=== PATIENT | male | born 1960 | race Caucasian/White ===

== ENCOUNTER 2018-03-19 15:22 | Emergency (ER) | payer OTHER, MEDICAID, SELFPAY ==
[2018-03-19 15:26] VITALS: BP 156/92; PULSE 115; RESP 22; TEMP 36.9; O2SAT 96; BMI 24.3
--- NOTE | 2018-03-19 15:33 | DI.RAD.S_ITS ---
PROCEDURE: XR CHEST 2V INDICATIONS: coughed real hard, heard/felt pop in left ribs. TECHNIQUE: 2 views of the chest were acquired. COMPARISON: None. FINDINGS: Surgical changes and devices: None. Lungs and pleura: No pleural effusions or pneumothorax. Lungs are clear. Mediastinum: Mediastinal contours are normal. Heart size is normal. Bones and chest wall: No suspicious bony abnormalities. Soft tissues appear unremarkable. IMPRESSION: No trauma found. No pneumonia seen. Dictated by: Rigoberto Serrano M.D. on 03/19/2018 at 15:46 Approved by: Rigoberto Serrano M.D. on 03/19/2018 at 15:46
--- NOTE | 2018-03-19 17:12 | ED.URI ---
HPI - URI/Sore Throat <JUANI Mirza - Last Filed: 03/19/18 23:06> General Chief Complaint: Upper Respiratory Symptoms Stated Complaint: hard to breathe, hacking stuff up Time Seen by Provider: 03/19/18 17:12 Source: patient Mode of arrival: ambulatory Limitations: no limitations History of Present Illness HPI Narrative: 57-year-old healthy male that is a former smoker here for complaint of having cough over the past few days that has been productive. He denies any fevers. He also reports having left flank pain that radiates to his left abdomen over the past few days as well. He denies any urinary symptoms. Positive p.o. intake. No nausea vomiting. he denies any trauma to the area. No hematuria. Last bowel movement was yesterday and was unremarkable. He denies any other concerns or complaints. MD Complaint: cough Related Data Previous Rx's Medication Instructions Recorded hydrocodone-acetaminophen 1 tab PO Q4-6H PRN #15 tab 03/19/18 ondansetron 4 mg PO Q6-8H PRN #10 tab 03/19/18 tamsulosin 0.4 mg PO DAILY #30 cap 03/19/18 Allergies Allergy/AdvReac Type Severity Reaction Status Date / Time No Known Drug Allergies Allergy Verified 03/19/18 15:31 Review of Systems <JUANI Mirza - Last Filed: 03/19/18 23:06> Constitutional Denies chills, Denies fever(s), Denies lethargy and Denies weakness Eyes Denies change in vision, Denies eye discharge, Denies irritation and Denies loss of vision ENT Ears, Nose, Mouth, and Throat: Denies change in voice, Denies neck pain, Denies sore throat and Denies throat swelling Cardiovascular Denies chest pain, Denies irregular heart rhythm, Denies lightheadedness, Denies palpitations and Denies orthopnea Respiratory Denies wheezing Comments: Cough Gastrointestinal Gastrointestinal: Reports abdominal pain, Denies change in bowel habits, Denies diarrhea, Denies nausea and Denies vomiting Genitourinary Reports flank pain Musculoskeletal Denies neck pain Integumentary/Breasts Denies pruritus, Denies erythema, Denies rash and Denies wounds Neurologic Denies confusion, Denies loss of vision and Denies weakness Psychiatric Denies anxiety, Denies confusion, Denies depression, Denies homicidal ideation and Denies suicidal ideation Endocrine Denies palpitations Hematologic/Lymphatic Denies easy bruising Allergic/Immunologic Denies urticaria, Denies throat swelling and Denies wheezing Exam <JUANI Mirza - Last Filed: 03/19/18 23:06> Initial Vital Signs Initial Vital Signs: Vital Signs Temperature 98.4 F 03/19/18 15:26 Pulse Rate 115 H 03/19/18 15:26 Respiratory Rate 22 03/19/18 15:26 Blood Pressure 156/92 H 03/19/18 15:26 Pulse Oximetry 96 03/19/18 15:26 Const General: cooperative and well developed Nutritional Appearance: well nourished Orientation: alert, awake, oriented x3 and not confused HENMT Mouth: oral mucosae normal and moist mucous membranes Eyes Conjunctivae: conjunctivae normal Sclera: sclerae normal Pupils: PERRL EOM: EOM intact bilaterally Resp Effort & Inspection: normal respiratory effort, able to speak in complete sentences, no respiratory distress and no use of accessory muscles Auscultation: clear to auscultation bilaterally, no rales, no rhonchi and no wheezes Cardio Rate: regular rate Rhythm: regular rhythm Heart Sounds: no click, no gallops, no murmurs and no rubs Pulses: normal peripheral pulses GI Inspection: non-distended Palpation: soft, no hepatosplenomegaly, No guarding, No pulsatile mass and tender Auscultation: normal bowel sounds General: CVA tenderness ( left ) Skin General: no rashes or lesions noted, No jaundice and No petechiae Neuro General: alert, oriented x3, gait normal and no focal motor deficits Speech: speech normal <Elissa Jovel DO - Last Filed: 03/21/18 03:54> Initial Vital Signs Initial Vital Signs: Vital Signs Temperature 98.4 F 03/19/18 15:26 Pulse Rate 115 H 03/19/18 15:26 Respiratory Rate 22 03/19/18 15:26 Blood Pressure 156/92 H 03/19/18 15:26 Pulse Oximetry 96 03/19/18 15:26 Course <JUANI Mirza - Last Filed: 03/19/18 23:06> Orders Ordered: Discontinued Medications Hydrocodone Bitart/Acetaminophen (Vicodin Prepack) 1 bottle MISC SEEINSTR ONE Stop: 03/19/18 22:39 Last Admin: 03/19/18 23:11 Dose: 1 bottle Sodium Chloride (Normal Saline 0.9%) 1,000 mls @ 1,000 mls/hr IV BOLUS ONE Stop: 03/19/18 18:18 Last Infusion: 03/19/18 19:50 Dose: 0 mls/hr Admin: 03/19/18 18:12 Dose: 1,000 mls/hr Tamsulosin HCl (Flomax) 0.4 mg PO NOW ONE Stop: 03/19/18 22:39 Last Admin: 03/19/18 23:11 Dose: 0.4 mg Vital Signs - 8 hr 03/19/18 15:26 03/19/18 18:35 03/19/18 21:48 Temperature 98.4 F Pulse Rate 115 H 98 H 102 H Respiratory Rate 22 20 12 Blood Pressure 156/92 H Blood Pressure [Left Arm] 151/91 H 142/88 H Pulse Oximetry 96 99 102 H 03/19/18 23:04 Temperature Pulse Rate 101 H Respiratory Rate Blood Pressure Blood Pressure [Left Arm] 140/87 Pulse Oximetry 92 <Elissa Jovel, - Last Filed: 03/21/18 03:54> Orders Ordered: Discontinued Medications Hydrocodone Bitart/Acetaminophen (Vicodin Prepack) 1 bottle [facility] SEEINSTR ONE Stop: 03/19/18 22:39 Last Admin: 03/19/18 23:11 Dose: 1 bottle Sodium Chloride (Normal Saline 0.9%) 1,000 mls @ 1,000 mls/hr IV BOLUS ONE Stop: 03/19/18 18:18 Last Infusion: 03/19/18 19:50 Dose: 0 mls/hr Admin: 03/19/18 18:12 Dose: 1,000 mls/hr Tamsulosin HCl (Flomax) 0.4 mg PO NOW ONE Stop: 03/19/18 22:39 Last Admin: 03/19/18 23:11 Dose: 0.4 mg Vital Signs - 8 hr 03/19/18 15:26 03/19/18 18:35 03/19/18 21:48 Temperature 98.4 F Pulse Rate 115 H 98 H 102 H Respiratory Rate 22 20 12 Blood Pressure 156/92 H Blood Pressure [Left Arm] 151/91 H 142/88 H Pulse Oximetry 96 99 102 H 03/19/18 23:04 Temperature Pulse Rate 101 H Respiratory Rate Blood Pressure Blood Pressure [Left Arm] 140/87 Pulse Oximetry 92 MDM - URI/Sore Throat <JUANI Mriza - Last Filed: 03/19/18 23:06> Lab Data Result diagrams: 03/19/18 18:03 03/19/18 18:03 Lab Results 03/19/18 03/19/18 03/19/18 Range/Units 18:03 18:03 18:03 WBC 11.0 (4.5-11.0) X10^3/uL RBC 5.31 (4.5-5.9) X10^6/uL Hgb 15.7 (13.5-17.5) g/dL Hct 47.2 (41-53) % MCV 88.7 (80-100) fL MCH 29.6 (26-34) PG MCHC 33.3 (30-36) % RDW 14.0 (11.6-14.8) % Plt Count 248 (150-400) X10^3/uL Neut % (Auto) 84.0 H (50-75) % Lymph % (Auto) 6.4 L (25-40) % Maverick % (Auto) 9.4 (3-14) % Eos % (Auto) 0.0 L (2-4) % Baso % (Auto) 0.2 (0-2) % Neut # (Auto) 9200 H (9357-0099) /uL Sodium 142 (137-145) mmol/L Potassium 4.0 (3.4-5.1) mmol/L Chloride 98 (98-107) mmol/L Carbon Dioxide 31 (22-32) mmol/L BUN 22 H (9-20) mg/dL Creatinine 1.40 H (0.66-1.25) mg/dL Estimated GFR 52.1 L (>60) mL/min BUN/Creatinine Ratio 15.7 (6-22) Glucose 118 H (70-100) mg/dL Calcium 9.6 (8.4-10.2) mg/dL Total Bilirubin 1.1 (0.2-1.3) mg/dL AST 22 (17-59) IU/L ALT 21 (21-72) IU/L Alkaline Phosphatase 95 (38-126) U/L Total Protein 8.1 (6.3-8.2) g/dL Albumin 4.5 (3.5-5.0) g/dL Globulin 3.6 (1.7-4.1) g/dL Albumin/Globulin Ratio 1.3 (1.0-2.8) Lipase 25 (23-300) U/L Urine RBC 1-5/hpf (0-5/HPF) Urine WBC 5-10/hpf H (0-5/HPF) Urine Bacteria None seen (None) Urine Mucus 2+ H (Negative) Ur Culture Indicated? Specimen cultured Micro UA Comment Not Reportable Urine Dip Bedside Urine Glucose Negative Bedside Urine Bilirubin - Negative Bedside Urine Ketone + 15 Urine Specific [place] 1.030 Bedside Urine Occult Blood +/- Bedside Urine pH 6.0 Bedside Urine Protein +/- 15 Bedside Urine Urobilinogen - Negative Bedside Urine Nitrite - Negative Bedside Urine Leukocytes - Negative Esterase Imaging Data Chest x-ray: Radiologist's impression: [address] [address] XRay Report Signed Patient: Jose Miguel Xavier#: [id number] : 1960Acct:[id number] Age/Sex: 57 / MDate of Service: 03/19/18 Loc: ED Accession Number: [id number] Procedure: XR chest 2V Ordering Provider: Gonzalo Johnson D.O. PROCEDURE: XR CHEST 2V INDICATIONS: coughed real hard, heard/felt pop in left ribs. TECHNIQUE: 2 views of the chest were acquired. COMPARISON: None. FINDINGS: Surgical changes and devices: None. Lungs and pleura: No pleural effusions or pneumothorax. Lungs are clear. Mediastinum: Mediastinal contours are normal. Heart size is normal. Bones and chest wall: No suspicious bony abnormalities. Soft tissues appear unremarkable. IMPRESSION: No trauma found. No pneumonia seen. Dictated by: Rigoberto Serrano M.D. on 03/19/2018 at 15:46 Approved by: Rigoberto Serrano M.D. on 03/19/2018 at 15:46 CT scan - abdomen: Radiologist's impression: [address] [address] [address] Scan Report Signed Patient: Jose Miguel Xavier#: [id number] : 1960Acct:[id number] Age/Sex: 57 / MDate of Service: 03/19/18 Loc: ED Accession Number: [id number] Procedure: CT abdomen pelvis w con Ordering Provider: Jaylan Ernandez PROCEDURE: CT ABDOMEN PELVIS W CON INDICATIONS: pain into the left flank and left abdominal area TECHNIQUE: After the administration of intravenous contrast, 5 mm thick sections acquired from the diaphragm to the symphysis. 5 mm coronal and sagittal reformats were acquired. For radiation dose reduction, the following was used: automated exposure control, adjustment of mA and/or kV according to patient size. COMPARISON: None. FINDINGS: Image quality: Excellent. ABDOMEN: Lung bases: There is mild atelectasis in the lung bases. Heart size is normal. A small hiatal hernia is present. Solid organs: No focal hepatic lesions identified. Gallbladder appears within normal limits without calcified gallstones.. Biliary system is non dilated. Pancreas enhances normally. Spleen is normal in size and enhancement. No adrenal nodules. There is an obstructing distal left ureteral stone measuring up to 4 mm with associated mild left hydroureteronephrosis. There is extensive left perinephric fluid tracking along the proximal ureter suggestive of forniceal rupture. There is mild asymmetrically decreased enhancement of the left kidney but no patchy areas of enhancement or other evidence of a striated nephrogram to definitely suggest pyelonephritis. Nonspecific left urothelial enhancement and thickening are noted. There is no right hydronephrosis. No additional renal stones identified. Peritoneum and bowel: Bowel loops demonstrate normal wall thickness and caliber. Colonic diverticulosis is demonstrated without acute diverticulitis. No free fluid or air. Nodes and vessels: No retroperitoneal or mesenteric adenopathy by size criteria. Aorta and inferior vena cava are normal in size. Miscellaneous: No ventral hernias. PELVIS: Genitourinary: Bladder wall thickness is normal. Miscellaneous: No inguinal hernias or adenopathy. Bones: No suspicious bony lesions. No vertebral body compression fractures. IMPRESSION: 1. Obstructing 4 mm distal left ureteral stone with mild left hydronephrosis. Extensive perinephric fluid is demonstrated suggestive of forniceal rupture. 2. Mild left urothelial thickening and enhancement are nonspecific but correlation is recommended with urinalysis to exclude a urinary tract infection. Findings discussed with JUANI Mirza on 03/19/18 at 7:40 PM. Dictated by: Denis Crisostomo M.D. on 03/19/2018 at 19:34 Approved by: Denis Crisostomo M.D. on 03/19/2018 at 19:43 [place] Narrative Medical decision making narrative: CT scan of the abdomen shows a 4 mm stone into the distal left ureter. CT scan also shows that evidence of a left forniceal rupure. mild hydroureter is also seen. Discussed case with [facility] urology who recommends follow-up with Urology on pain control and tamsulosin. if any worsening symptoms return to the emergency room. He is prescribed [place] for pain. Zofran for any nausea. And 30 days of tamsulosin. patient is to call the kidney stone center at [facility] tomorrow morning to schedule follow-up appointment. Follow up in the next few days with them. For any worsening symptoms return to the emergency room. <Elissa Jovel, - Last Filed: 03/21/18 03:54> Lab Data Lab Results 03/19/18 03/19/18 03/19/18 Range/Units 18:03 18:03 18:03 WBC 11.0 (4.5-11.0) X10^3/uL RBC 5.31 (4.5-5.9) X10^6/uL Hgb 15.7 (13.5-17.5) g/dL Hct 47.2 (41-53) % MCV 88.7 (80-100) fL MCH 29.6 (26-34) PG MCHC 33.3 (30-36) % RDW 14.0 (11.6-14.8) % Plt Count 248 (150-400) X10^3/uL Neut % (Auto) 84.0 H (50-75) % Lymph % (Auto) 6.4 L (25-40) % Maverick % (Auto) 9.4 (3-14) % Eos % (Auto) 0.0 L (2-4) % Baso % (Auto) 0.2 (0-2) % Neut # (Auto) 9200 H (5318-6390) /uL Sodium 142 (137-145) mmol/L Potassium 4.0 (3.4-5.1) mmol/L Chloride 98 (98-107) mmol/L Carbon Dioxide 31 (22-32) mmol/L BUN 22 H (9-20) mg/dL Creatinine 1.40 H (0.66-1.25) mg/dL Estimated GFR 52.1 L (>60) mL/min BUN/Creatinine Ratio 15.7 (6-22) Glucose 118 H (70-100) mg/dL Calcium 9.6 (8.4-10.2) mg/dL Total Bilirubin 1.1 (0.2-1.3) mg/dL AST 22 (17-59) IU/L ALT 21 (21-72) IU/L Alkaline Phosphatase 95 (38-126) U/L Total Protein 8.1 (6.3-8.2) g/dL Albumin 4.5 (3.5-5.0) g/dL Globulin 3.6 (1.7-4.1) g/dL Albumin/Globulin Ratio 1.3 (1.0-2.8) Lipase 25 (23-300) U/L Urine RBC 1-5/hpf (0-5/HPF) Urine WBC 5-10/hpf H (0-5/HPF) Urine Bacteria None seen (None) Urine Mucus 2+ H (Negative) Ur Culture Indicated? Specimen cultured Micro UA Comment Not Reportable Urine Dip Bedside Urine Glucose Negative Bedside Urine Bilirubin - Negative Bedside Urine Ketone + 15 Urine Specific [place] 1.030 Bedside Urine Occult Blood +/- Bedside Urine pH 6.0 Bedside Urine Protein +/- 15 Bedside Urine Urobilinogen - Negative Bedside Urine Nitrite - Negative Bedside Urine Leukocytes - Negative Esterase Discharge Plan Departure Patient Disposition: Home Clinical Impression: Nephrolithiasis Discharge Date/Time: 03/19/18 23:22 Interventions: ED Discharge Assessment Last Done: 03/19/18 23:22 Instructions: DI for Kidney Stones Activity Restrictions/Additional Instructions: CT of the abdomen shows left sided kidney stone. Kidney stone is a 4 mm in size. Follow up at [facility] kidney stone center for further evaluation. Call their number at [phone] and follow up with them in the next few days. Plenty of fluids. Tylenol needed for any discomfort. [place] is prescribed for breakthrough pain use as directed. Flomax as prescribed to help you passed stone also use as directed. Small amount of Zofran as prescribed for nausea also use as directed. For any worsening symptoms or unable to keep fluids down return to the emergency room. Follow up with primary care provider. Prescriptions: New hydrocodone-acetaminophen 5-325 mg tablet 1 tab PO Q4-6H PRN (Reason: pain) Qty: 15 RF: 0 tamsulosin 0.4 mg capsule 0.4 mg PO DAILY Qty: 30 RF: 0 ondansetron 4 mg tablet,disintegrating 4 mg PO Q6-8H PRN (Reason: nausea and vomiting) Qty: 10 RF: 0 Referrals: [facility] [Provider Group] <Elissa Jovel, - Last Filed: 03/21/18 03:54> [facility] ED Attending Robert Attestation: I was immediately available in the department for consultation. Documentation has been reviewed. I agree with assessment and plan.
--- NOTE | 2018-03-19 17:20 | DI.CT.S_ITS ---
PROCEDURE: CT ABDOMEN PELVIS W CON INDICATIONS: pain into the left flank and left abdominal area TECHNIQUE: After the administration of intravenous contrast, 5 mm thick sections acquired from the diaphragm to the symphysis. 5 mm coronal and sagittal reformats were acquired. For radiation dose reduction, the following was used: automated exposure control, adjustment of mA and/or kV according to patient size. COMPARISON: None. FINDINGS: Image quality: Excellent. ABDOMEN: Lung bases: There is mild atelectasis in the lung bases. Heart size is normal. A small hiatal hernia is present. Solid organs: No focal hepatic lesions identified. Gallbladder appears within normal limits without calcified gallstones.. Biliary system is non dilated. Pancreas enhances normally. Spleen is normal in size and enhancement. No adrenal nodules. There is an obstructing distal left ureteral stone measuring up to 4 mm with associated mild left hydroureteronephrosis. There is extensive left perinephric fluid tracking along the proximal ureter suggestive of forniceal rupture. There is mild asymmetrically decreased enhancement of the left kidney but no patchy areas of enhancement or other evidence of a striated nephrogram to definitely suggest pyelonephritis. Nonspecific left urothelial enhancement and thickening are noted. There is no right hydronephrosis. No additional renal stones identified. Peritoneum and bowel: Bowel loops demonstrate normal wall thickness and caliber. Colonic diverticulosis is demonstrated without acute diverticulitis. No free fluid or air. Nodes and vessels: No retroperitoneal or mesenteric adenopathy by size criteria. Aorta and inferior vena cava are normal in size. Miscellaneous: No ventral hernias. PELVIS: Genitourinary: Bladder wall thickness is normal. Miscellaneous: No inguinal hernias or adenopathy. Bones: No suspicious bony lesions. No vertebral body compression fractures. IMPRESSION: 1. Obstructing 4 mm distal left ureteral stone with mild left hydronephrosis. Extensive perinephric fluid is demonstrated suggestive of forniceal rupture. 2. Mild left urothelial thickening and enhancement are nonspecific but correlation is recommended with urinalysis to exclude a urinary tract infection. Findings discussed with JUANI Mirza on 03/19/18 at 7:40 PM. Dictated by: Denis Crisostomo M.D. on 03/19/2018 at 19:34 Approved by: Denis Crisostomo M.D. on 03/19/2018 at 19:43
[2018-03-19] MEDS: SODIUM CHLORIDE 0.9% 1,000 ML 1000 ML IV (18:12)
[2018-03-19 18:14] LABS: Bacteria Urine None Seen
[2018-03-19 18:19] LABS: Add Manual Diff / Slide Review NO; Basophils Percent Auto 0.2 % (0-2); Hematocrit 47.2 % (41-53); Hemoglobin 15.7 g/dL (13.5-17.5); Lymphocytes Percent Auto 6.4 % (25-40); Mean Corpuscular HGB Conc 33.3 % (30-36); Mean Corpuscular Hemoglobin 29.6 PG (26-34); Mean Corpuscular Volume 88.7 fL (80-100); Monocytes Percent Auto 9.4 % (3-14); Neutrophils Absolute Auto 9200 /uL (3000-5900); Platelet Count 248 X10^3/uL (150-400); Red Blood Cell Count 5.31 X10^6/uL (4.5-5.9)
[2018-03-19 18:25] LABS: Culture Indicated Urine Specimen Cultured; Mucus Urine 2+ (Negative); RBC Urine 1-5/HPF (0-5/HPF); WBC Urine 5-10/HPF (0-5/HPF)
[2018-03-19 18:31] LABS: Alanine Aminotransferase 21 IU/L (21-72); Albumin 4.5 g/dL (3.5-5.0); Albumin Globulin Ratio 1.3 (1.0-2.8); Alkaline Phosphatase 95 U/L (38-126); Aspartate Aminotransferase 22 IU/L (17-59); BUN Creatinine Ratio 15.7 (6-22); Bilirubin Total 1.1 mg/dL (0.2-1.3); Blood Urea Nitrogen 22 mg/dL (9-20); Calcium 9.6 mg/dL (8.4-10.2); Carbon Dioxide 31 mmol/L (22-32); Chloride 98 mmol/L (98-107); Estimated Glomerular Filt Rate 52.1 mL/min (>60); Globulin 3.6 g/dL (1.7-4.1); Glucose 118 mg/dL (70-100); HEMOLYSIS < 15 (0-50); Lipase 25 U/L (23-300); Sodium 142 mmol/L (137-145); Total Protein 8.1 g/dL (6.3-8.2)
[2018-03-19 18:35] VITALS: BP 151/91; PULSE 98; RESP 20; O2SAT 99
[2018-03-19 21:48] VITALS: BP 142/88; PULSE 102; RESP 12; O2SAT 102
--- NOTE | 2018-03-19 21:58 | ED_ITS ---
HPI - URI/Sore Throat <JUANI Mirza - Last Filed: 03/19/18 23:06> General Chief Complaint: Upper Respiratory Symptoms Stated Complaint: hard to breathe, hacking stuff up Time Seen by Provider: 03/19/18 17:12 Source: patient Mode of arrival: ambulatory Limitations: no limitations History of Present Illness HPI Narrative: 57-year-old healthy male that is a former smoker here for complaint of having cough over the past few days that has been productive. He denies any fevers. He also reports having left flank pain that radiates to his left abdomen over the past few days as well. He denies any urinary symptoms. Positive p.o. intake. No nausea vomiting. he denies any trauma to the area. No hematuria. Last bowel movement was yesterday and was unremarkable. He denies any other concerns or complaints. MD Complaint: cough Related Data Previous Rx's Medication Instructions Recorded hydrocodone-acetaminophen 1 tab PO Q4-6H PRN #15 tab 03/19/18 ondansetron 4 mg PO Q6-8H PRN #10 tab 03/19/18 tamsulosin 0.4 mg PO DAILY #30 cap 03/19/18 Allergies Allergy/AdvReac Type Severity Reaction Status Date / Time No Known Drug Allergies Allergy Verified 03/19/18 15:31 Review of Systems <JUANI Mirza - Last Filed: 03/19/18 23:06> Constitutional Denies chills, Denies fever(s), Denies lethargy and Denies weakness Eyes Denies change in vision, Denies eye discharge, Denies irritation and Denies loss of vision ENT Ears, Nose, Mouth, and Throat: Denies change in voice, Denies neck pain, Denies sore throat and Denies throat swelling Cardiovascular Denies chest pain, Denies irregular heart rhythm, Denies lightheadedness, Denies palpitations and Denies orthopnea Respiratory Denies wheezing Comments: Cough Gastrointestinal Gastrointestinal: Reports abdominal pain, Denies change in bowel habits, Denies diarrhea, Denies nausea and Denies vomiting Genitourinary Reports flank pain Musculoskeletal Denies neck pain Integumentary/Breasts Denies pruritus, Denies erythema, Denies rash and Denies wounds Neurologic Denies confusion, Denies loss of vision and Denies weakness Psychiatric Denies anxiety, Denies confusion, Denies depression, Denies homicidal ideation and Denies suicidal ideation Endocrine Denies palpitations Hematologic/Lymphatic Denies easy bruising Allergic/Immunologic Denies urticaria, Denies throat swelling and Denies wheezing Exam <JUANI Mirza - Last Filed: 03/19/18 23:06> Initial Vital Signs Initial Vital Signs: Vital Signs Temperature 98.4 F 03/19/18 15:26 Pulse Rate 115 H 03/19/18 15:26 Respiratory Rate 22 03/19/18 15:26 Blood Pressure 156/92 H 03/19/18 15:26 Pulse Oximetry 96 03/19/18 15:26 Const General: cooperative and well developed Nutritional Appearance: well nourished Orientation: alert, awake, oriented x3 and not confused HENMT Mouth: oral mucosae normal and moist mucous membranes Eyes Conjunctivae: conjunctivae normal Sclera: sclerae normal Pupils: PERRL EOM: EOM intact bilaterally Resp Effort & Inspection: normal respiratory effort, able to speak in complete sentences, no respiratory distress and no use of accessory muscles Auscultation: clear to auscultation bilaterally, no rales, no rhonchi and no wheezes Cardio Rate: regular rate Rhythm: regular rhythm Heart Sounds: no click, no gallops, no murmurs and no rubs Pulses: normal peripheral pulses GI Inspection: non-distended Palpation: soft, no hepatosplenomegaly, No guarding, No pulsatile mass and tender Auscultation: normal bowel sounds General: CVA tenderness ( left ) Skin General: no rashes or lesions noted, No jaundice and No petechiae Neuro General: alert, oriented x3, gait normal and no focal motor deficits Speech: speech normal <Elissa Jovel DO - Last Filed: 03/21/18 03:54> Initial Vital Signs Initial Vital Signs: Vital Signs Temperature 98.4 F 03/19/18 15:26 Pulse Rate 115 H 03/19/18 15:26 Respiratory Rate 22 03/19/18 15:26 Blood Pressure 156/92 H 03/19/18 15:26 Pulse Oximetry 96 03/19/18 15:26 Course <JUANI Mirza - Last Filed: 03/19/18 23:06> Orders Ordered: Discontinued Medications Hydrocodone Bitart/Acetaminophen (Vicodin Prepack) 1 bottle MISC SEEINSTR ONE Stop: 03/19/18 22:39 Last Admin: 03/19/18 23:11 Dose: 1 bottle Sodium Chloride (Normal Saline 0.9%) 1,000 mls @ 1,000 mls/hr IV BOLUS ONE Stop: 03/19/18 18:18 Last Infusion: 03/19/18 19:50 Dose: 0 mls/hr Admin: 03/19/18 18:12 Dose: 1,000 mls/hr Tamsulosin HCl (Flomax) 0.4 mg PO NOW ONE Stop: 03/19/18 22:39 Last Admin: 03/19/18 23:11 Dose: 0.4 mg Vital Signs - 8 hr 03/19/18 15:26 03/19/18 18:35 03/19/18 21:48 Temperature 98.4 F Pulse Rate 115 H 98 H 102 H Respiratory Rate 22 20 12 Blood Pressure 156/92 H Blood Pressure [Left Arm] 151/91 H 142/88 H Pulse Oximetry 96 99 102 H 03/19/18 23:04 Temperature Pulse Rate 101 H Respiratory Rate Blood Pressure Blood Pressure [Left Arm] 140/87 Pulse Oximetry 92 <Elissa Jovel, - Last Filed: 03/21/18 03:54> Orders Ordered: Discontinued Medications Hydrocodone Bitart/Acetaminophen (Vicodin Prepack) 1 bottle [facility] SEEINSTR ONE Stop: 03/19/18 22:39 Last Admin: 03/19/18 23:11 Dose: 1 bottle Sodium Chloride (Normal Saline 0.9%) 1,000 mls @ 1,000 mls/hr IV BOLUS ONE Stop: 03/19/18 18:18 Last Infusion: 03/19/18 19:50 Dose: 0 mls/hr Admin: 03/19/18 18:12 Dose: 1,000 mls/hr Tamsulosin HCl (Flomax) 0.4 mg PO NOW ONE Stop: 03/19/18 22:39 Last Admin: 03/19/18 23:11 Dose: 0.4 mg Vital Signs - 8 hr 03/19/18 15:26 03/19/18 18:35 03/19/18 21:48 Temperature 98.4 F Pulse Rate 115 H 98 H 102 H Respiratory Rate 22 20 12 Blood Pressure 156/92 H Blood Pressure [Left Arm] 151/91 H 142/88 H Pulse Oximetry 96 99 102 H 03/19/18 23:04 Temperature Pulse Rate 101 H Respiratory Rate Blood Pressure Blood Pressure [Left Arm] 140/87 Pulse Oximetry 92 MDM - URI/Sore Throat <JUANI Mirza - Last Filed: 03/19/18 23:06> Lab Data Result diagrams: 03/19/18 18:03 03/19/18 18:03 Lab Results 03/19/18 03/19/18 03/19/18 Range/Units 18:03 18:03 18:03 WBC 11.0 (4.5-11.0) X10^3/uL RBC 5.31 (4.5-5.9) X10^6/uL Hgb 15.7 (13.5-17.5) g/dL Hct 47.2 (41-53) % MCV 88.7 (80-100) fL MCH 29.6 (26-34) PG MCHC 33.3 (30-36) % RDW 14.0 (11.6-14.8) % Plt Count 248 (150-400) X10^3/uL Neut % (Auto) 84.0 H (50-75) % Lymph % (Auto) 6.4 L (25-40) % Apache % (Auto) 9.4 (3-14) % Eos % (Auto) 0.0 L (2-4) % Baso % (Auto) 0.2 (0-2) % Neut # (Auto) 9200 H (3808-4573) /uL Sodium 142 (137-145) mmol/L Potassium 4.0 (3.4-5.1) mmol/L Chloride 98 (98-107) mmol/L Carbon Dioxide 31 (22-32) mmol/L BUN 22 H (9-20) mg/dL Creatinine 1.40 H (0.66-1.25) mg/dL Estimated GFR 52.1 L (>60) mL/min BUN/Creatinine Ratio 15.7 (6-22) Glucose 118 H (70-100) mg/dL Calcium 9.6 (8.4-10.2) mg/dL Total Bilirubin 1.1 (0.2-1.3) mg/dL AST 22 (17-59) IU/L ALT 21 (21-72) IU/L Alkaline Phosphatase 95 (38-126) U/L Total Protein 8.1 (6.3-8.2) g/dL Albumin 4.5 (3.5-5.0) g/dL Globulin 3.6 (1.7-4.1) g/dL Albumin/Globulin Ratio 1.3 (1.0-2.8) Lipase 25 (23-300) U/L Urine RBC 1-5/hpf (0-5/HPF) Urine WBC 5-10/hpf H (0-5/HPF) Urine Bacteria None seen (None) Urine Mucus 2+ H (Negative) Ur Culture Indicated? Specimen cultured Micro UA Comment Not Reportable Urine Dip Bedside Urine Glucose Negative Bedside Urine Bilirubin - Negative Bedside Urine Ketone + 15 Urine Specific Elfrida 1.030 Bedside Urine Occult Blood +/- Bedside Urine pH 6.0 Bedside Urine Protein +/- 15 Bedside Urine Urobilinogen - Negative Bedside Urine Nitrite - Negative Bedside Urine Leukocytes - Negative Esterase Imaging Data Chest x-ray: Radiologist's impression: [address] [address] XRay Report Signed Patient: Jose Miguel Xavier#: [id number] : 1960Acct:[id number] Age/Sex: 57 / MDate of Service: 03/19/18 Loc: ED Accession Number: [id number] Procedure: XR chest 2V Ordering Provider: Gonzalo Johnson D.O. PROCEDURE: XR CHEST 2V INDICATIONS: coughed real hard, heard/felt pop in left ribs. TECHNIQUE: 2 views of the chest were acquired. COMPARISON: None. FINDINGS: Surgical changes and devices: None. Lungs and pleura: No pleural effusions or pneumothorax. Lungs are clear. Mediastinum: Mediastinal contours are normal. Heart size is normal. Bones and chest wall: No suspicious bony abnormalities. Soft tissues appear unremarkable. IMPRESSION: No trauma found. No pneumonia seen. Dictated by: Rigoberto Serrano M.D. on 03/19/2018 at 15:46 Approved by: Rigoberto Serrano M.D. on 03/19/2018 at 15:46 CT scan - abdomen: Radiologist's impression: [address] [address] [address] Scan Report Signed Patient: Jose Miguel Xavier#: [id number] : 1960Acct:[id number] Age/Sex: 57 / MDate of Service: 03/19/18 Loc: ED Accession Number: [id number] Procedure: CT abdomen pelvis w con Ordering Provider: Jaylan Ernandez PROCEDURE: CT ABDOMEN PELVIS W CON INDICATIONS: pain into the left flank and left abdominal area TECHNIQUE: After the administration of intravenous contrast, 5 mm thick sections acquired from the diaphragm to the symphysis. 5 mm coronal and sagittal reformats were acquired. For radiation dose reduction, the following was used: automated exposure control, adjustment of mA and/or kV according to patient size. COMPARISON: None. FINDINGS: Image quality: Excellent. ABDOMEN: Lung bases: There is mild atelectasis in the lung bases. Heart size is normal. A small hiatal hernia is present. Solid organs: No focal hepatic lesions identified. Gallbladder appears within normal limits without calcified gallstones.. Biliary system is non dilated. Pancreas enhances normally. Spleen is normal in size and enhancement. No adrenal nodules. There is an obstructing distal left ureteral stone measuring up to 4 mm with associated mild left hydroureteronephrosis. There is extensive left perinephric fluid tracking along the proximal ureter suggestive of forniceal rupture. There is mild asymmetrically decreased enhancement of the left kidney but no patchy areas of enhancement or other evidence of a striated nephrogram to definitely suggest pyelonephritis. Nonspecific left urothelial enhancement and thickening are noted. There is no right hydronephrosis. No additional renal stones identified. Peritoneum and bowel: Bowel loops demonstrate normal wall thickness and caliber. Colonic diverticulosis is demonstrated without acute diverticulitis. No free fluid or air. Nodes and vessels: No retroperitoneal or mesenteric adenopathy by size criteria. Aorta and inferior vena cava are normal in size. Miscellaneous: No ventral hernias. PELVIS: Genitourinary: Bladder wall thickness is normal. Miscellaneous: No inguinal hernias or adenopathy. Bones: No suspicious bony lesions. No vertebral body compression fractures. IMPRESSION: 1. Obstructing 4 mm distal left ureteral stone with mild left hydronephrosis. Extensive perinephric fluid is demonstrated suggestive of forniceal rupture. 2. Mild left urothelial thickening and enhancement are nonspecific but correlation is recommended with urinalysis to exclude a urinary tract infection. Findings discussed with JUANI Mirza on 03/19/18 at 7:40 PM. Dictated by: Denis Crisostomo M.D. on 03/19/2018 at 19:34 Approved by: Denis Crisostomo M.D. on 03/19/2018 at 19:43 [facility] Narrative Medical decision making narrative: CT scan of the abdomen shows a 4 mm stone into the distal left ureter. CT scan also shows that evidence of a left forniceal rupure. mild hydroureter is also seen. Discussed case with [facility] urology who recommends follow-up with Urology on pain control and tamsulosin. if any worsening symptoms return to the emergency room. He is prescribed Sumner for pain. Zofran for any nausea. And 30 days of tamsulosin. patient is to call the kidney stone center at [facility] tomorrow morning to schedule follow-up appointment. Follow up in the next few days with them. For any worsening symptoms return to the emergency room. <Elissa Jovel, - Last Filed: 03/21/18 03:54> Lab Data Lab Results 03/19/18 03/19/18 03/19/18 Range/Units 18:03 18:03 18:03 WBC 11.0 (4.5-11.0) X10^3/uL RBC 5.31 (4.5-5.9) X10^6/uL Hgb 15.7 (13.5-17.5) g/dL Hct 47.2 (41-53) % MCV 88.7 (80-100) fL MCH 29.6 (26-34) PG MCHC 33.3 (30-36) % RDW 14.0 (11.6-14.8) % Plt Count 248 (150-400) X10^3/uL Neut % (Auto) 84.0 H (50-75) % Lymph % (Auto) 6.4 L (25-40) % [place] % (Auto) 9.4 (3-14) % Eos % (Auto) 0.0 L (2-4) % Baso % (Auto) 0.2 (0-2) % Neut # (Auto) 9200 H (6824-5811) /uL Sodium 142 (137-145) mmol/L Potassium 4.0 (3.4-5.1) mmol/L Chloride 98 (98-107) mmol/L Carbon Dioxide 31 (22-32) mmol/L BUN 22 H (9-20) mg/dL Creatinine 1.40 H (0.66-1.25) mg/dL Estimated GFR 52.1 L (>60) mL/min BUN/Creatinine Ratio 15.7 (6-22) Glucose 118 H (70-100) mg/dL Calcium 9.6 (8.4-10.2) mg/dL Total Bilirubin 1.1 (0.2-1.3) mg/dL AST 22 (17-59) IU/L ALT 21 (21-72) IU/L Alkaline Phosphatase 95 (38-126) U/L Total Protein 8.1 (6.3-8.2) g/dL Albumin 4.5 (3.5-5.0) g/dL Globulin 3.6 (1.7-4.1) g/dL Albumin/Globulin Ratio 1.3 (1.0-2.8) Lipase 25 (23-300) U/L Urine RBC 1-5/hpf (0-5/HPF) Urine WBC 5-10/hpf H (0-5/HPF) Urine Bacteria None seen (None) Urine Mucus 2+ H (Negative) Ur Culture Indicated? Specimen cultured Micro UA Comment Not Reportable Urine Dip Bedside Urine Glucose Negative Bedside Urine Bilirubin - Negative Bedside Urine Ketone + 15 Urine Specific Elfrida 1.030 Bedside Urine Occult Blood +/- Bedside Urine pH 6.0 Bedside Urine Protein +/- 15 Bedside Urine Urobilinogen - Negative Bedside Urine Nitrite - Negative Bedside Urine Leukocytes - Negative Esterase Discharge Plan Departure Patient Disposition: Home Clinical Impression: Nephrolithiasis Discharge Date/Time: 03/19/18 23:22 Interventions: ED Discharge Assessment Last Done: 03/19/18 23:22 Instructions: DI for Kidney Stones Activity Restrictions/Additional Instructions: CT of the abdomen shows left sided kidney stone. Kidney stone is a 4 mm in size. Follow up at [facility] kidney stone center for further evaluation. Call their number at [phone] and follow up with them in the next few days. Plenty of fluids. Tylenol needed for any discomfort. Sumner is prescribed for breakthrough pain use as directed. Flomax as prescribed to help you passed stone also use as directed. Small amount of Zofran as prescribed for nausea also use as directed. For any worsening symptoms or unable to keep fluids down return to the emergency room. Follow up with primary care provider. Prescriptions: New hydrocodone-acetaminophen 5-325 mg tablet 1 tab PO Q4-6H PRN (Reason: pain) Qty: 15 RF: 0 tamsulosin 0.4 mg capsule 0.4 mg PO DAILY Qty: 30 RF: 0 ondansetron 4 mg tablet,disintegrating 4 mg PO Q6-8H PRN (Reason: nausea and vomiting) Qty: 10 RF: 0 Referrals: [facility] [Provider Group] <Elissa Jovel, - Last Filed: 03/21/18 03:54> [facility] ED Attending Robert Attestation: I was immediately available in the department for consultation. Documentation has been reviewed. I agree with assessment and plan.
[2018-03-19 23:04] VITALS: BP 140/87; PULSE 101; O2SAT 92
[2018-03-19] MEDS: HYDROCODONE/ACET 5/325 PREPACK 1 BOTTLE MISC (23:11)
[2018-03-19] MEDS: TAMSULOSIN 0.4 MG CAPSULE PO (23:11)
== END 2018-03-19 23:22 | disposition home or self-care (01) ==
PROVIDERS: Emergency Provider Nurse Practitioner Family
DX: N20.0 Calculus of kidney (principal)
CPT/HCPCS: 36591; 71046; 74177; 80053; 81003; 81015; 83690; 85025; 87086; 96360; 96361; 99283; 99285; Q9967

== ENCOUNTER → 2018-07-03 15:24 | Outpatient (REF) | payer OTHER, MEDICAID, SELFPAY | LOC: LAB 15:24 | PROVIDERS: Visit Provider Internal Medicine | DX: F17.200 Nicotine dependence, unspecified, uncomplicated (principal); R06.09 Other forms of dyspnea; R06.02 Shortness of breath | CPT/HCPCS: 87070; 87205 ==

== ENCOUNTER → 2018-07-04 12:23 | Outpatient (CLI) | payer OTHER, MEDICAID, SELFPAY ==
--- NOTE | 2018-07-04 | DI.RAD.S_ITS ---
PROCEDURE: XR CHEST 2V INDICATIONS: SHORTNESS OF BREATH.DYSPNEA TECHNIQUE: 2 views of the chest were acquired. COMPARISON: [facility], CR, XR CHEST 2V, 03/19/2018, 15:08. FINDINGS: Surgical changes and devices: None. Lungs and pleura: Lungs are clear. No pleural effusions or pneumothorax. Mediastinum: Mediastinal contours are normal. Heart size is normal. Bones and chest wall: No suspicious bony abnormalities. Soft tissues appear unremarkable. IMPRESSION: Normal for age, source of current shortness of breath symptoms is not seen. Dictated by: Rigoberto Serrano M.D. on 07/04/2018 at 13:08 Approved by: Rigoberto Serrano M.D. on 07/04/2018 at 13:08
== END ==
PROVIDERS: Visit Provider Internal Medicine
DX: R06.02 Shortness of breath (principal); R06.00 Dyspnea, unspecified; F17.200 Nicotine dependence, unspecified, uncomplicated
CPT/HCPCS: 71046

== ENCOUNTER → 2018-07-10 14:26 | Outpatient (CLI) | payer OTHER, MEDICAID, SELFPAY ==
--- NOTE | 2018-07-10 | DI.CT.S_ITS ---
PROCEDURE: CT CHEST WO CON INDICATIONS: SMOKE/DYSPNEA WITH EXERTION TECHNIQUE: Noncontrast 5 mm thick sections acquired from the pulmonary apices to the posterior costophrenic angles. 7 mm thick coronal and sagittal MIP reformats were then acquired. For radiation dose reduction, the following was used: automated exposure control, adjustment of mA and/or kV according to patient size. COMPARISON: [facility], CT, CT ABDOMEN PELVIS W CON, 03/19/2018, 18:42. FINDINGS: Image quality: Excellent. Lungs and pleura: No acute consolidation. Upper lobe predominant centrilobular emphysema. Diffuse airway thickening. No pleural effusions or pneumothorax. Central and peripheral airways are patent and normal in caliber. Mediastinum: Heart size is normal. Calcified coronary artery disease noted No pericardial effusion. No mediastinal adenopathy by size criteria. Thoracic aorta and central pulmonary arteries are normal in size. Esophagus is normal in caliber. No hiatal hernia. Bones and chest wall: No suspicious bony lesions. No vertebral body compression fractures. No axillary or supraclavicular adenopathy by size criteria. Thyroid gland negative. Abdomen: Visualized upper abdominal solid organs and bowel loops appear normal in the absence of contrast. IMPRESSION: 6 mm left perihilar nodule, indeterminate in the absence of relevant comparison studies. Therefore recommend followup with a noncontrast chest CT in 6 months. Upper lobe predominant centrilobular emphysema. No acute consolidation. Diffuse bronchial wall thickening suggesting chronic bronchitis versus reactive airway disease. Calcified coronary artery disease. Dictated by: Louie Ramos M.D. on 07/10/2018 at 16:08 Approved by: Louie Ramos M.D. on 07/10/2018 at 16:18
== END ==
PROVIDERS: Visit Provider Internal Medicine
DX: R06.09 Other forms of dyspnea (principal); R91.1 Solitary pulmonary nodule; J43.2 Centrilobular emphysema; I25.10 Atherosclerotic heart disease of native coronary artery without angina pectoris
CPT/HCPCS: 71250

== ENCOUNTER → 2018-08-24 12:47 | Outpatient (CLI) | payer OTHER, MEDICAID, SELFPAY ==
--- NOTE | 2018-08-31 16:30 | PM.PFT.1 ---
Pulmonary Function Test Referral & Results Date Patient Seen: 08/24/18 Requesting provider: Sarita Davis Indication: COPD Results: The spirometry demonstrates an FVC of 3.69 L which is 66% of predicted. The FEV1 was measured at 1.17 L which is 27% of predicted. The FEV1/FVC ratio was 32 which is 41% of predicted. Following the administration of bronchodilator there was at 24% improvement in FEV1 and a 50% improvement in FEF 25-75%. Lung volumes show an SVC of 3.34 L which is 61% of predicted. The diffusing capacity was measured at 20.06 which is 52% of predicted. No hemoglobin value was provided, so no correction for potential anemia could be made, if appropriate. The maximum voluntary ventilation was reduced Interpretation: This study demonstrates severe obstructive lung disease with evidence of significant benefit following bronchodilator based on improvement in FEV1 and FEF 25-75% There is also moderate restrictive lung disease present based on reduction SVC There is also a moderate reduction in diffusing capacity suggesting an element of disease at the capillary alveolar level
== END ==
PROVIDERS: Visit Provider Internal Medicine
DX: J43.2 Centrilobular emphysema (principal); R06.09 Other forms of dyspnea
CPT/HCPCS: 94060; 94726; 94729

== ENCOUNTER → 2018-09-17 14:40 | Outpatient (CLI) | payer OTHER, MEDICAID, SELFPAY ==
--- NOTE | 2018-09-17 15:48 | PM.TREADMILL ---
Cardiac Stress Test Report Referral & Results Date Patient Seen: 09/17/18 Requesting provider: Sarita Davis Indication: Dyspnea Rest ECG: Unremarkable Procedure Note: Today following both written and verbal informed consent, the patient was exercised according to a standard Jonathon protocol. The patient exercised for a total of 5 minutes 30 seconds achieving a maximum heart rate of 130 for. Patient's maximum systolic blood pressure was 190. This was an estimated 7.0 MET's. Patient's oxygen saturation quickly dropped to 90% with initiation of exercise but did not fall any further than that. He quickly returned to 94+ % with cessation of activity Patient quickly became quite dyspneic by report although he was still able to speak in full sentences No ST-T segment changes Occasional PAC and PVC Functional aerobic impairment rated 30% on the sedentary scale Impression: No evidence of cardiac ischemia as a cause of symptoms Limited exercise capacity Probably primary pulmonary disease based on observations during exercise Please note: Actual ECG tracings can be found in the PACS system.
== END ==
PROVIDERS: PCP Internal Medicine; Visit Provider Internal Medicine
DX: R06.00 Dyspnea, unspecified (principal); J44.9 Chronic obstructive pulmonary disease, unspecified
CPT/HCPCS: 93016; 93017; 93018

== ENCOUNTER → 2019-09-17 15:14 | Outpatient (CLI) | payer OTHER, MEDICAID, SELFPAY ==
--- NOTE | 2019-09-17 15:20 | DI.CT.S_ITS ---
PROCEDURE: CT CHEST WO CON INDICATIONS: LUNG NODULE TECHNIQUE: Noncontrast 5 mm thick sections acquired from the pulmonary apices to the posterior costophrenic angles. 1 mm lung window, 5 mm thick coronal and sagittal and 7 mm axial MIP reformats were then acquired. For radiation dose reduction, the following was used: automated exposure control, adjustment of mA and/or kV according to patient size. COMPARISON: [facility], CT, CT CHEST WO CON, 07/10/2018, 14:25. [facility], CR, XR CHEST 2V, 07/04/2018, 12:26. [facility], CT, CT ABDOMEN PELVIS W CON, 03/19/2018, 18:42. FINDINGS: Image quality: Excellent. Lungs and pleura: On the prior examination, there was seen a left sided perihilar nodule. This is largely resolved, measuring 4-5 mm. Prominent centrilobular emphysematous changes are seen. No acute air space opacities. No pleural effusions or pneumothorax. Central and peripheral airways are patent and normal in caliber. Mediastinum: Heart size is normal. Coronary artery calcifications are seen. No pericardial effusion. No mediastinal adenopathy by size criteria. Thoracic aorta and central pulmonary arteries are normal in size. Esophagus is normal in caliber. No hiatal hernia. Bones and chest wall: No suspicious bony lesions. Age-appropriate bony degenerative changes are seen. No vertebral body compression fractures. No axillary or supraclavicular adenopathy by size criteria. Thyroid gland demonstrates no significant noncontrast abnormality. Abdomen: Visualized upper abdominal solid organs and bowel loops appear normal in the absence of contrast. IMPRESSION: Decreased size of the previously seen left-sided perihilar nodule. No specific imaging followup is recommended. Prominent centrilobular emphysematous changes are seen. In this patient with a presumed smoking, please consider annual low dose CT screening for lung cancer, assuming that this patient meets the standard screening criteria (i.e. current or recent smoker with a 30 pack-year history). Incidental note is made of: Coronary artery calcification Dictated by: José Zepeda M.D. on 09/17/2019 at 15:41 Approved by: José Zepeda M.D. on 09/17/2019 at 15:45
== END ==
PROVIDERS: PCP Internal Medicine; Referring Provider Internal Medicine; Visit Provider Internal Medicine
DX: R91.1 Solitary pulmonary nodule (principal); I25.10 Atherosclerotic heart disease of native coronary artery without angina pectoris
CPT/HCPCS: 71250

== ENCOUNTER → 2020-08-14 12:55 | Outpatient (CLI) | payer OTHER, MEDICAID, SELFPAY ==
--- NOTE | 2020-08-14 | DI.RAD.S_ITS ---
PROCEDURE: XR CHEST 2V INDICATIONS: COUGH TECHNIQUE: 2 views of the chest were acquired. COMPARISON: [facility], CT, CT CHEST WO CON, 09/17/2019, 15:17. [facility], CR, XR CHEST 2V, 07/04/2018, 12:26. FINDINGS: Surgical changes and devices: None. Lungs and pleura: There is new patchy consolidation superimposed on chronic pulmonary emphysematous changes involving the right mid and upper lung zone. Minimal patchy left infrahilar opacity also noted. No pleural effusions or pneumothorax. Mediastinum: Mediastinal contours are normal. Heart size is normal. Bones and chest wall: No suspicious bony abnormalities. Soft tissues appear unremarkable. IMPRESSION: 1. New right mid and upper lung zone consolidation and patchy left infrahilar opacities favored to represent airspace disease/pneumonia. Chronic background pulmonary emphysematous changes. Recommend follow up chest radiograph 4-6 weeks after treatment to document resolution of findings and/or return to baseline examination. Dictated by: Bishnu Reynolds M.D. on 08/14/2020 at 13:49 Approved by: Bishnu Reynolds M.D. on 08/14/2020 at 13:51
== END ==
PROVIDERS: PCP Internal Medicine; Referring Provider Nurse Practitioner Family; Visit Provider Nurse Practitioner Family
DX: R05 Cough (principal); J44.9 Chronic obstructive pulmonary disease, unspecified
CPT/HCPCS: 71046

== ENCOUNTER → 2020-09-24 13:02 | Outpatient (CLI) | payer OTHER, MEDICAID, SELFPAY ==
--- NOTE | 2020-09-24 | DI.RAD.S_ITS ---
PROCEDURE: XR CHEST 2V INDICATIONS: Pneumonia, unspecified organism TECHNIQUE: 2 views of the chest were acquired. COMPARISON: [facility], CR, XR CHEST 2V, 08/14/2020, 13:02. [facility], CR, XR CHEST 2V, 07/04/2018, 12:26. [facility], CR, XR CHEST 2V, 03/19/2018, 15:08. FINDINGS: Surgical changes and devices: None. Lungs and pleura: There is increased right apical pleural parenchymal density.. No pleural effusions or pneumothorax. Mediastinum: Mediastinal contours are normal. Heart size is normal. Bones and chest wall: No suspicious bony abnormalities. Soft tissues appear unremarkable. IMPRESSION: Increasing right apical pneumonia. Continued plain film surveillance is recommended to ensure resolution, and to exclude underlying or central malignancy. Dictated by: Nacho Grant M.D. on 09/24/2020 at 16:54 Approved by: Nacho Grant M.D. on 09/24/2020 at 16:55
== END ==
PROVIDERS: PCP Internal Medicine; Referring Provider Internal Medicine; Visit Provider Internal Medicine
DX: J18.9 Pneumonia, unspecified organism (principal)
CPT/HCPCS: 71046

== ENCOUNTER → 2020-10-06 12:09 | Outpatient (CLI) | payer OTHER, MEDICAID, SELFPAY ==
--- NOTE | 2020-10-06 12:14 | DI.CT.S_ITS ---
PROCEDURE: CT CHEST WO CON INDICATIONS: ongoing pneumonia TECHNIQUE: Noncontrast 5 mm thick sections acquired from the pulmonary apices to the posterior costophrenic angles. 1 mm lung window, 5 mm thick coronal and sagittal and 7 mm axial MIP reformats were then acquired. For radiation dose reduction, the following was used: automated exposure control, adjustment of mA and/or kV according to patient size. COMPARISON: [facility], CT, CT CHEST WO CON, 07/10/2018, 14:25. [facility], CR, XR CHEST 2V, 08/14/2020, 13:02. [facility], CR, XR CHEST 2V, 09/24/2020, 13:00. [facility], CT, CT CHEST WO CON, 09/17/2019, 15:17. FINDINGS: Image quality: Excellent. Lungs and pleura: There is a moderate-sized area of irregular airspace density in the right apex measuring approximately 7.8 x 2.8 x 8.1 cm. There is central cavitation and associated bronchiectasis. A 1.8 x 1.5 cm subpleural nodule with cavitation is seen in the left lower lobe. Moderate to severe centrilobular emphysema. No pleural effusions or pneumothorax. Mediastinum: Heart size is normal. Mild coronary artery calcification. No pericardial effusion. No mediastinal adenopathy by size criteria. Thoracic aorta and central pulmonary arteries are normal in size. Esophagus is normal in caliber. Small hiatal hernia. Bones and chest wall: No suspicious bony lesions. No vertebral body compression fractures. No axillary or supraclavicular adenopathy by size criteria. Thyroid gland is normal. Abdomen: Visualized upper abdominal solid organs and bowel loops appear normal in the absence of contrast. IMPRESSION: 1. A moderate-sized area of irregular airspace density in the right apex with central cavitation and associated bronchiectasis. Recommend continued follow-up to resolution. A small cavitary lesion is seen in the left lower lobe measuring. Both are most likely sequelae of pulmonary infections. Neoplasm is felt less likely. Recommend a short-term follow-up CT in 3 months. 2. Moderate to severe centrilobular emphysema. 3. Small hiatal hernia. Dictated by: Tacho Hay M.D. on 10/06/2020 at 15:33 Approved by: Tacho Hay M.D. on 10/06/2020 at 17:56
== END ==
PROVIDERS: PCP Internal Medicine; Referring Provider Internal Medicine; Visit Provider Internal Medicine
DX: J18.9 Pneumonia, unspecified organism (principal); J43.2 Centrilobular emphysema; K44.9 Diaphragmatic hernia without obstruction or gangrene
CPT/HCPCS: 71250

== ENCOUNTER → 2021-04-20 12:33 | Outpatient (CLI) | payer OTHER, MEDICAID, SELFPAY ==
--- NOTE | 2021-04-20 12:36 | DI.CT.S_ITS ---
PROCEDURE: CT CHEST WO CON INDICATIONS: Solitary pulmonary nodule TECHNIQUE: Noncontrast 5 mm thick sections acquired from the pulmonary apices to the posterior costophrenic angles. 1 mm lung window, 5 mm thick coronal and sagittal and 7 mm axial MIP reformats were then acquired. For radiation dose reduction, the following was used: automated exposure control, adjustment of mA and/or kV according to patient size. COMPARISON: [facility], CT, CT CHEST WO CON, 07/10/2018, 14:25. [facility], CT, CT CHEST WO CON, 10/06/2020, 12:16. [facility] With [facility], CT, CT CHEST WO CON, 09/17/2019, 15:17. FINDINGS: Image quality: Excellent. Lungs and pleura: No new acute air space opacities. Stable appearance of background severe pulmonary emphysematous changes with an upper lobe predominance. Biapical scarring as before. Previously seen large, irregular airspace consolidation involving the right lung apex with associated cavitation has decreased significantly in size. No definite residual cavitation seen. There is peripheral bronchiectasis extending through this consolidation as before. Its size is difficult to measure but visibly appears significantly less conspicuous. Stable appearance of right upper lobe bronchiectasis leading to this area of irregular consolidation. Small peripheral focus of airspace opacity with cavitation has nearly resolved within the left lower lobe. No pleural effusions or pneumothorax. Central airways are patent. Mediastinum: Heart size is normal. Mild atherosclerotic calcifications of the coronary arteries. No pericardial effusion. No mediastinal adenopathy by size criteria. Thoracic aorta and central pulmonary arteries are normal in size. Esophagus is normal in caliber. Small hiatal hernia. Bones and chest wall: No suspicious bony lesions. No vertebral body compression fractures. No axillary or supraclavicular adenopathy by size criteria. Thyroid gland is unremarkable . Abdomen: Visualized upper abdominal solid organs and bowel loops appear normal in the absence of contrast. IMPRESSION: 1. Previously described moderate-sized area of irregular airspace density in the right lung apex with central cavitation and bronchiectasis has decreased significantly in size and conspicuity. Near complete resolution of central cavitation. Additionally, small focus of airspace density with cavitation in the posterior, periphery of the left lower lobe has demonstrated near complete resolution. Findings are consistent with resolving infectious process. Underlying neoplastic process not completely excluded but felt less likely given significant interval change. Recommend continued surveillance with follow-up CT in 3-6 months. 2. Stable appearance of moderate-severe upper lobe predominant centrilobular pulmonary emphysema. 3. Small hiatal hernia. 4. Atherosclerosis. Dictated by: Bishnu Reynolds M.D. on 04/20/2021 at 15:45 Approved by: Bishnu Reynolds M.D. on 04/20/2021 at 16:04
== END ==
PROVIDERS: PCP Internal Medicine; Referring Provider Internal Medicine; Visit Provider Internal Medicine
DX: R91.1 Solitary pulmonary nodule (principal); J18.9 Pneumonia, unspecified organism; J43.2 Centrilobular emphysema; I25.10 Atherosclerotic heart disease of native coronary artery without angina pectoris; K44.9 Diaphragmatic hernia without obstruction or gangrene
CPT/HCPCS: 71250

== ENCOUNTER → 2022-01-25 12:31 | Outpatient (CLI) | payer OTHER, MEDICAID, SELFPAY ==
--- NOTE | 2022-01-25 | DI.CT.S_ITS ---
PROCEDURE: CT CHEST WO CON INDICATIONS: Solitary pulmonary nodule TECHNIQUE: Noncontrast 5 mm thick sections acquired from the pulmonary apices to the posterior costophrenic angles. 1 mm lung window, 5 mm thick coronal and sagittal and 7 mm axial MIP reformats were then acquired. For radiation dose reduction, the following was used: automated exposure control, adjustment of mA and/or kV according to patient size. COMPARISON: [facility], CT, CT CHEST WO CON, 10/06/2020, 12:16. [facility], CT, CT CHEST WO CON, 04/20/2021, 12:41. FINDINGS: Image quality: Excellent. Lungs and pleura: Moderate-severe emphysema redemonstrated. Previously demonstrated predominantly linear irregular opacity with adjacent traction bronchiectasis at the right lung apex is not significantly changed. No definite new suspicious or enlarging pulmonary nodule. No pleural effusion. Mediastinum: Heart size is normal. No pericardial effusion. Multivessel coronary artery calcifications and/or stents. No mediastinal adenopathy by size criteria. Thoracic aorta and central pulmonary arteries are normal in size. Esophagus is normal in caliber. Bones and chest wall: No suspicious bony lesions. No vertebral body compression fractures. No axillary or supraclavicular adenopathy by size criteria. Abdomen: Visualized upper abdominal solid organs and bowel loops appear normal in the absence of contrast. IMPRESSION: Previously demonstrated predominantly linear irregular opacity with adjacent traction bronchiectasis at the right lung apex is not significantly changed. This could represent scarring/post-infectious or post-inflammatory change. Imaging follow-up can be obtained as clinically indicated. Dictated by: Maldonado Escalera M.D. on 01/26/2022 at 10:39 Approved by: Maldonado Escalera M.D. on 01/26/2022 at 10:54
== END ==
PROVIDERS: PCP Internal Medicine; Referring Provider Internal Medicine; Visit Provider Internal Medicine
DX: R91.1 Solitary pulmonary nodule (principal); J44.9 Chronic obstructive pulmonary disease, unspecified
CPT/HCPCS: 71250

== ENCOUNTER → 2024-04-22 12:38 | Outpatient (CLI) | payer OTHER, MEDICAID, SELFPAY ==
--- NOTE | 2024-04-22 12:40 | DI.CT.S_ITS ---
PROCEDURE: CT CHEST WO CON INDICATIONS: SMOKER,COPD,HX OF PULM NODULE TECHNIQUE: Noncontrast 5 mm thick sections acquired from the pulmonary apices to the posterior costophrenic angles. 1 mm lung window, 5 mm thick coronal and sagittal and 7 mm axial MIP reformats were then acquired. For radiation dose reduction, the following was used: automated exposure control, adjustment of mA and/or kV according to patient size. COMPARISON: [facility], CT, CT CHEST WO CON, 01/25/2022, 12:38. [facility], CT, CT CHEST WO CON, 04/20/2021, 12:41. FINDINGS: Image quality: Diagnostic. Lower Neck: No enlarged lymph nodes. Thyroid: No thyroid nodules which require sonographic follow up, per consensus guidelines. Axillae: No enlarged lymph nodes. Chest Wall: Unremarkable. Bones: Unremarkable. Lungs and Pleura: No pneumothorax. Moderate upper lobe predominant pulmonary emphysema. No new suspicious or enlarging pulmonary nodules. No pleural effusion. Redemonstration of previously described linear, irregular density with adjacent traction bronchiectasis of the right lung apex appears stable. Heart: Heart size is normal. No pericardial effusion. Coronary atherosclerotic vascular calcifications are noted. Thoracic Vessels: The aorta and pulmonary arteries demonstrate normal size. Mediastinum and Megan: No enlarged lymph nodes. Esophagus: No wall thickening. No hiatal hernia. Upper Abdomen: Visualized upper abdomen solid organs and bowel loops appear normal. IMPRESSION: CT chest without acute cardiopulmonary abnormalities. Stable appearance of linear, irregular consolidation with adjacent traction bronchiectasis involving the right lung apex. Stable appearance of moderate upper lobe predominant pulmonary emphysematous changes. Atherosclerosis. Dictated by: Bishnu Reynolds M.D. on 04/22/2024 at 15:04 Approved by: Bishnu Reynolds M.D. on 04/22/2024 at 15:08
== END ==
PROVIDERS: PCP Internal Medicine; Referring Provider Internal Medicine; Visit Provider Internal Medicine
DX: J44.9 Chronic obstructive pulmonary disease, unspecified (principal); J47.9 Bronchiectasis, uncomplicated; F17.200 Nicotine dependence, unspecified, uncomplicated; R91.1 Solitary pulmonary nodule; I25.10 Atherosclerotic heart disease of native coronary artery without angina pectoris
CPT/HCPCS: 71250